=== PATIENT | female | born 1980 | race Two or more races ===

== ENCOUNTER 2022-11-13 09:20 | Outpatient (RCR) | payer MEDICARE, SELFPAY | END 2023-07-30 12:11 | disposition left against medical advice (07) | LOC: HO.WCC 09:20 | PROVIDERS: PCP Internal Medicine; Referring Provider Internal Medicine; Visit Provider Surgery | DX: I87.312 Chronic venous hypertension (idiopathic) with ulcer of left lower extremity (principal); L97.822 Non-pressure chronic ulcer of other part of left lower leg with fat layer exposed; G62.9 Polyneuropathy, unspecified; R73.03 Prediabetes; Z86.718 Personal history of other venous thrombosis and embolism; Z79.84 Long term (current) use of oral hypoglycemic drugs; Z79.01 Long term (current) use of anticoagulants; Z79.899 Other long term (current) drug therapy | CPT/HCPCS: 11042; 97597; 99213 ==